=== PATIENT | female | born 1995 | race American Indian/Alaskan Native ===

== ENCOUNTER 2016-12-15 06:06 | Emergency (ER) | payer MEDICAID ==
[2016-12-15] MEDS ORDERED: ZOFRAN ODT ONE (06:26)
[2016-12-15] MEDS ORDERED: TYLENOL ONE (06:27)
[2016-12-15] MEDS ORDERED: ZOFRAN ODT PO ONE (06:38)
[2016-12-15] MEDS ORDERED: TYLENOL PO ONE (06:39)
--- NOTE | 2016-12-15 07:53 | Emergency Department Report ---
ED Back Pain/Injury HPI - General Chief Complaint: Back Pain/Injury Stated Complaint: LOWER BACK PAIN Time Seen by Provider: 12/15/16 07:52 Source: patient, family, EMS Limitations: No Limitations - History of Present Illness Initial Comments: Patient here by EMS complaining of low back pain 2 days. She denies any injury. Denies any fever or chills. Denies any urinary burning frequency or urgency. Denies any abdominal pain. Denies any nausea vomiting or diarrhea. She said her lower back pain on both sides is 10 out of 10 and it feels achy. Denies any loss of bowel or bladder function. Denies any urinary or bowel incontinence. She is currently on her menses. She says she did not take any medication for pain. MD Complaint: back pain Onset/Timin -: days(s) Similar Symptoms Previously: Yes Place: home Radiation: none Severity: severe Severity scale (0 -10): 10 Quality: aching Consistency: constant Improves With: none Worsens With: none Context: unknown Associated Symptoms: denies: confusion, weakness, chest pain, numbness, difficulty walking, cough, difficulty urinating, diaphoresis, incontinence, fever/chills, constipation, headaches, abdominal pain, loss of appetite, malaise , nausea/vomiting, rash, seizure, shortness of breath, syncope Treatments Prior to Arrival: other (none) - Related Data Previous Rx's Medication Instructions Recorded Last Taken Type HYDROcodone/APAP 5-325 [[place] 1 each PO Q6HR PRN #16 tablet 12/28/13 Unknown Rx 5-325 mg TAB] Nitrofurantoin [place]/M-Cryst 100 mg PO Q12HR #14 capsule 12/15/16 Unknown Rx [Macrobid CAP] traMADol [Ultram] 50 mg PO Q6HR PRN #12 tablet 12/15/16 Unknown Rx Allergies Allergy/AdvReac Type Severity Reaction Status Date / Time No Known Allergies Allergy Unverified 12/28/13 10:21 ED Review of Systems ROS: Stated complaint: LOWER BACK PAIN Other details as noted in HPI Comment: All other systems reviewed and negative Constitutional: denies: chills, fever ENT: denies: throat pain Respiratory: no symptoms reported Cardiovascular: denies: chest pain, palpitations, edema, syncope Gastrointestinal: denies: abdominal pain, nausea, vomiting, diarrhea, constipation, hematemesis, melena, hematochezia Genitourinary: denies: urgency, dysuria, frequency, hematuria, discharge, abnormal menses, dyspareunia Musculoskeletal: back pain. denies: joint swelling, arthralgia, myalgia Skin: denies: rash Neurological: denies: headache, weakness, numbness, paresthesias, confusion, abnormal gait, vertigo ED Past Medical Hx - Past Medical History Previous Medical History?: Yes - Surgical History Past Surgical History?: Yes Additional Surgical History: ectopic surgery, Ovarian cyst - Family History Family history: hypertension - Social History Smoking Status: Current Every Day Smoker Substance Use Type: Marijuana - Medications Home Medications: Home Medications Medication Instructions Recorded Confirmed Last Taken Type HYDROcodone/APAP 5-325 [[place] 1 each PO Q6HR PRN #16 tablet 12/28/13 Unknown Rx 5-325 mg TAB] Nitrofurantoin [place]/M-Cryst 100 mg PO Q12HR #14 capsule 12/15/16 Unknown Rx [Macrobid CAP] traMADol [Ultram] 50 mg PO Q6HR PRN #12 tablet 12/15/16 Unknown Rx ED Physical Exam - General Limitations: No Limitations General appearance: alert, in no apparent distress - Head Head exam: Present: atraumatic, normocephalic, normal inspection - Eye Eye exam: Present: normal appearance, PERRL, EOMI Pupils: Present: normal accommodation - ENT ENT exam: Present: normal exam, normal orophraynx, mucous membranes moist. Absent: TM's normal bilaterally, normal external ear exam - Neck Neck exam: Present: normal inspection, full ROM. Absent: tenderness, meningismus, lymphadenopathy - Respiratory Respiratory exam: Present: normal lung sounds bilaterally. Absent: respiratory distress, chest wall tenderness - Cardiovascular Cardiovascular Exam: Present: regular rate, normal rhythm, normal heart sounds - GI/Abdominal GI/Abdominal exam: Present: soft, normal bowel sounds. Absent: distended, tenderness, guarding, rebound, rigid, organomegaly, mass, bruit - Extremities Exam Extremities exam: Present: normal inspection, full ROM, normal capillary refill. Absent: tenderness, pedal edema, joint swelling, calf tenderness - Back Exam Back exam: Present: normal inspection, full ROM. Absent: tenderness, CVA tenderness (R), CVA tenderness (L), muscle spasm, paraspinal tenderness, vertebral tenderness, rash noted - Expanded Back Exam Expanded Back exam: Absent: saddle anesthesia Back exam: Negative Straight Leg Raising: Left, Right - Neurological Exam Neurological exam: Present: alert, oriented X3, normal gait - Psychiatric Psychiatric exam: Present: normal affect, normal mood - Skin Skin exam: Present: warm, dry, intact, normal color. Absent: rash ED Course Vital Signs 12/15/16 06:24 Temperature 98.7 F Pulse Rate 87 Respiratory 16 Rate Blood Pressure 140/90 Blood Pressure 140/90 [Left] O2 Sat by Pulse 100 Oximetry - Reevaluation(s) Reevaluation #1: 12/15/16 09:33 Patient is stable and no distress at present. ED Medical Decision Making - Lab Data Lab Results 12/15/16 Range/Units 07:35 Urine Color Yellow (Yellow) Urine Turbidity Slightly-cloudy (Clear) Urine pH 7.0 (5.0-7.0) Ur Specific [place] 1.016 (1.003-1.030) Urine Protein 30 mg/dl (Negative) mg/dL Urine Glucose (UA) Neg (Negative) mg/dL Urine Ketones Tr (Negative) mg/dL Urine Blood Lg (Negative) Urine Nitrite Neg (Negative) Urine Bilirubin Neg (Negative) Urine Urobilinogen < 2.0 (<2.0) mg/dL Ur Leukocyte Esterase Mod (Negative) Urine WBC (Auto) 51.0 H (0.0-6.0) /HPF Urine RBC (Auto) 12.0 (0.0-6.0) /HPF U Epithel Cells (Auto) 3.0 (0-13.0) /HPF Urine Bacteria (Auto) 2+ (Negative) /HPF Urine Mucus 1+ /HPF Urine HCG, Qual Negative (Negative) Urine culture pending - Medical Decision Making ED course: Patient here for back pain and urinalysis reveals that she has acute cystitis with large amount of blood. Currently on her menses. She remained stable throughout ED course and able to tolerate oral liquids. I discussed diagnosis and treatment plan the patient patient was understanding and need to follow-up with her primary care in 3-5 days and if she does not have one to follow-up with [facility]. Condition discharged home with prescription for Ultram. Critical care attestation.: If time is entered above; I have spent that time in minutes in the direct care of this critically ill patient, excluding procedure time. ED Disposition Clinical Impression: Acute cystitis with hematuria Back pain Qualifiers: Back pain location: low back pain Chronicity: acute Back pain laterality: bilateral Sciatica presence: without sciatica Qualified Code(s): M54.5 - Low back pain Disposition: DISCHARGED TO HOME OR SELFCARE Is pt being admited?: No Does the pt Need Aspirin: No Condition: Stable Instructions: Back Pain (ED), Urinary Tract Infection in Women (ED) Additional Instructions: Please drink plenty of fluids to include cranberry juice at least 2 L today. Take antibiotic as prescribed. Prescriptions: Nitrofurantoin [place]/M-Cryst [Macrobid CAP] 100 mg PO Q12HR #14 capsule traMADol [Ultram] 50 mg PO Q6HR PRN #12 tablet PRN Reason: Pain Referrals: PRIMARY CARE, [Primary Care Provider] - 3-5 Days [facility] [Outside] - 3-5 Days Forms: Work/School Release Form(ED)
[2016-12-15 09:38] LABS: Bacteria,Urine 2+ /HPF (Negative); Bilirubin,Urine NEG (Negative); Blood,Urine LG (Negative); Ketones,Urine TR mg/dL (Negative); Leukocyte Esterase,Urine MOD (Negative); Mucus,Urine 1+ /HPF; Nitrite,Urine NEG (Negative); Urobilinogen,Urine < 2.0 mg/dL (<2.0)
[2016-12-15] MEDS ORDERED: NORCO 5/325 PO ONE (11:27)
[2016-12-15 11:35] VITALS: BP 136/84
== END 2016-12-15 11:33 | disposition home or self-care (01) ==
LOC: ED 06:06
DX: N30.01 Acute cystitis with hematuria (principal); M54.5 Low back pain; F17.200 Nicotine dependence, unspecified, uncomplicated; F12.10 Cannabis abuse, uncomplicated
CPT/HCPCS: 81001; 81025; 87076; 87086; 87186; 99284; Q0162

== ENCOUNTER 2017-06-10 14:50 | Emergency (ER) | payer MEDICAID ==
[2017-06-10 15:39] LABS: Basophils % (Auto) 0.5 % (0.0-1.8); Eosinophils % (Auto) 0.8 % (0.0-4.3); Mean Corpuscular HGB Conc 33 % (30-34); Mean Corpuscular Hemoglobin 30 pg (28-32); Mean Corpuscular Volume 89 fl (79-97); Platelet Count 190 K/mm3 (140-440); Red Blood Count 4.38 M/mm3 (3.65-5.03); Red Cell Distribution Width 12.7 % (13.2-15.2); White Blood Count 4.6 K/mm3 (4.5-11.0)
[2017-06-10 15:58] LABS: Anion Gap 17 mmol/L; BUN/Creatinine Ratio 10; Blood Urea Nitrogen 6 mg/dL (7-17); Calcium 9.2 mg/dL (8.4-10.2); Carbon Dioxide 22 mmol/L (22-30); Chloride 101.5 mmol/L (98-107); Glucose 100 mg/dL (65-100); Potassium 3.5 mmol/L (3.6-5.0); Sodium 137 mmol/L (137-145)
--- NOTE | 2017-06-10 17:55 | Ultrasound Report ---
FINAL REPORT PROCEDURE: US TRANSVAGINAL and transabdominal TECHNIQUE: Real-time transabdominal sonography in multiple planes of the pelvis was performed. The pelvic structures were not optimally visualized. Transvaginal sonography was then performed to better evaluate the structures and/or abnormalities described below with image documentation. Grayscale, color flow Doppler imaging and velocity spectral waveform analysis of the ovaries was employed (duplex imaging). CPT 11215, 38993, and 04442 HISTORY: pelvic pain COMPARISON: No prior studies are available for comparison. FINDINGS: UTERUS Size: 7.2 x 3.5 x 4.9 cm. Endometrial thickness: 8 mm. Orientation: anteverted. Cervix: Normal. Fibroids/masses: None. RIGHT Ovary: 6.2 x 4.8 x 6.4 cm. Appearance: There is a hypoechoic rounded mass with internal septations measuring 6.0 x 5.1 x 4.7 centimeters. No internal blood flow seen. This may be a complex cyst. Doppler images: Normal spectral waveforms and color flow. The systolic and diastolic velocities are within normal limits. LEFT Ovary: 3.4 x 1.4 x 2.3 cm. Appearance: Normal. Doppler images: Normal spectral waveforms and color flow. The systolic and diastolic velocities are within normal limits. Pelvic fluid: Minimal free fluid is seen. Other: None. IMPRESSION: Complex right ovarian mass may be a complex cyst. Follow-up ultrasound in 6 weeks could be obtained as indicated. PROCEDURE: TECHNIQUE: HISTORY: COMPARISON: FINDINGS: IMPRESSION:
--- NOTE | 2017-06-10 17:55 | Ultrasound Report ---
FINAL REPORT PROCEDURE: US TRANSVAGINAL and transabdominal TECHNIQUE: Real-time transabdominal sonography in multiple planes of the pelvis was performed. The pelvic structures were not optimally visualized. Transvaginal sonography was then performed to better evaluate the structures and/or abnormalities described below with image documentation. Grayscale, color flow Doppler imaging and velocity spectral waveform analysis of the ovaries was employed (duplex imaging). CPT 09024, 90216, and 50767 HISTORY: pelvic pain COMPARISON: No prior studies are available for comparison. FINDINGS: UTERUS Size: 7.2 x 3.5 x 4.9 cm. Endometrial thickness: 8 mm. Orientation: anteverted. Cervix: Normal. Fibroids/masses: None. RIGHT Ovary: 6.2 x 4.8 x 6.4 cm. Appearance: There is a hypoechoic rounded mass with internal septations measuring 6.0 x 5.1 x 4.7 centimeters. No internal blood flow seen. This may be a complex cyst. Doppler images: Normal spectral waveforms and color flow. The systolic and diastolic velocities are within normal limits. LEFT Ovary: 3.4 x 1.4 x 2.3 cm. Appearance: Normal. Doppler images: Normal spectral waveforms and color flow. The systolic and diastolic velocities are within normal limits. Pelvic fluid: Minimal free fluid is seen. Other: None. IMPRESSION: Complex right ovarian mass may be a complex cyst. Follow-up ultrasound in 6 weeks could be obtained as indicated.
[2017-06-10 18:57] LABS: Bacteria,Urine 2+ /HPF (Negative); Bilirubin,Urine NEG (Negative); Blood,Urine NEG (Negative); Ketones,Urine NEG (Negative); Leukocyte Esterase,Urine SM (Negative); Mucus,Urine 3+ /HPF; Nitrite,Urine POS (Negative); Urobilinogen,Urine < 2.0 mg/dL (<2.0)
[2017-06-10] MEDS ORDERED: TORADOL IM ONE (21:50)
--- NOTE | 2017-06-10 21:55 | Emergency Department Report ---
ED Abdominal Pain HPI - General Chief Complaint: Abdominal Pain Stated Complaint: VAGINAL PAIN Time Seen by Provider: 06/10/17 21:39 Source: patient Mode of arrival: Ambulatory Limitations: No Limitations - History of Present Illness Initial Comments: 21 YO FEMALE WITH H/O RIGHT OVARIAN CYSTS HER WITH C/O SEVERE 10/10 PAIN A FEW SECONDS AFTER SEXUAL INTERCOURSE. THE PAIN WAS FELT IN HER VAGINA AND IN HER ABDOMEN. SHE HAS NEVER HAD THIS PAIN BEFORE. SHE HAD NO PAIN DURING SEXUAL INTERCOURSE BUT ONLY AFTER. HER PARTNER WAS NOT PARTICULARLY LARGE IN PENIS SIZE. MD Complaint: abdominal pain -: Sudden Location: suprapubic Radiation: other (VAGINA) Migration to: no migration Severity scale (0 -10): 10 Quality: sharp Consistency: now resolved (RESOLVED WITHIN MINUTES) Worsens With: nothing Context: recent antibiotic use (SEX) Treatments Prior to Arrival: other (NOTHING) - Related Data Previous Rx's Medication Instructions Recorded Last Taken Type Nitrofurantoin [place]/M-Cryst 100 mg PO Q12HR #14 capsule 12/15/16 Unknown Rx [Macrobid CAP] traMADol [Ultram] 50 mg PO Q6HR PRN #12 tablet 12/15/16 Unknown Rx HYDROcodone/APAP 5-325 [[place] 2 each PO Q6HR PRN #16 tablet 06/10/17 Unknown Rx 5-325 mg TAB] Nitrofurantoin Monohyd/M-Cryst 100 mg PO BID #14 capsule 06/10/17 Unknown Rx [Macrobid 100 mg Capsule] Allergies Allergy/AdvReac Type Severity Reaction Status Date / Time No Known Allergies Allergy Unverified 12/28/13 10:21 ED Review of Systems ROS: Stated complaint: VAGINAL PAIN Other details as noted in HPI Constitutional: denies: chills, fever Eyes: denies: eye pain, eye discharge, vision change ENT: denies: ear pain, throat pain Respiratory: denies: cough, shortness of breath, wheezing Cardiovascular: denies: chest pain, palpitations Endocrine: no symptoms reported Gastrointestinal: denies: abdominal pain, nausea, diarrhea Genitourinary: denies: urgency, dysuria, discharge Musculoskeletal: denies: back pain, joint swelling, arthralgia Skin: denies: rash, lesions Neurological: headache. denies: weakness, paresthesias Psychiatric: denies: anxiety, depression Hematological/Lymphatic: denies: easy bleeding, easy bruising ED Past Medical Hx - Past Medical History Previous Medical History?: Yes Additional medical history: RIGHT OVARIAN CYST - Surgical History Additional Surgical History: ectopic surgery, Ovarian cyst - Social History Smoking Status: Current Every Day Smoker Substance Use Type: Alcohol - Medications Home Medications: Home Medications Medication Instructions Recorded Confirmed Last Taken Type Nitrofurantoin [place]/M-Cryst 100 mg PO Q12HR #14 capsule 12/15/16 Unknown Rx [Macrobid CAP] traMADol [Ultram] 50 mg PO Q6HR PRN #12 tablet 12/15/16 Unknown Rx HYDROcodone/APAP 5-325 [[place] 2 each PO Q6HR PRN #16 tablet 06/10/17 Unknown Rx 5-325 mg TAB] Nitrofurantoin Monohyd/M-Cryst 100 mg PO BID #14 capsule 06/10/17 Unknown Rx [Macrobid 100 mg Capsule] ED Physical Exam - General Limitations: No Limitations General appearance: alert, in no apparent distress - Head Head exam: Present: atraumatic, normocephalic - Eye Eye exam: Present: normal appearance - ENT ENT exam: Present: mucous membranes moist - Neck Neck exam: Present: normal inspection - Respiratory Respiratory exam: Present: normal lung sounds bilaterally. Absent: respiratory distress, wheezes - Cardiovascular Cardiovascular Exam: Present: regular rate, normal rhythm. Absent: systolic murmur, diastolic murmur, rubs, gallop - GI/Abdominal GI/Abdominal exam: Present: soft, tenderness (OVER UTERUS), normal bowel sounds. Absent: distended, guarding, rebound - Extremities Exam Extremities exam: Present: normal inspection - Back Exam Back exam: Present: normal inspection - Neurological Exam Neurological exam: Present: alert, oriented X3 - Psychiatric Psychiatric exam: Present: normal affect, normal mood - Skin Skin exam: Present: warm, dry, intact, normal color. Absent: rash ED Course Vital Signs 06/10/17 06/10/17 15:00 20:51 Temperature 98.2 F 99.7 F H Pulse Rate 87 100 H Respiratory 18 18 Rate Blood Pressure 108/83 101/64 O2 Sat by Pulse 100 100 Oximetry ED Medical Decision Making - Lab Data Result diagrams: 06/10/17 15:26 06/10/17 15:26 - Radiology Data Radiology results: report reviewed (US PELVIS/TRANSVAGINAL; RIGHT OVARIAN MASS CT ABD/PELVIS: COMPLEX RIGHT OVARIAN CYST WITH SEPTATIONS) - Medical Decision Making 1. UTI----MACROBID 2. ABD PAIN---NARCO 3. WILL DO CT OF ABD/PELVIS TO SEE IF RIGHT OVARY HAS MASS OR CYST. 4. D/C TO FOLLOW UP WITH PRINCIPAL SYSTEM SOFTWARE ENGINEER ABOUT RIGHT OVARY MASS Critical care attestation.: If time is entered above; I have spent that time in minutes in the direct care of this critically ill patient, excluding procedure time. ED Disposition Clinical Impression: Ovarian cystic mass Qualifiers: Laterality: right Qualified Code(s): N83.201 - Unspecified ovarian cyst, right side Abdominal pain Qualifiers: Abdominal location: lower abdomen, unspecified Qualified Code(s): R10.30 - Lower abdominal pain, unspecified UTI (urinary tract infection) Qualifiers: Urinary tract infection type: acute cystitis Hematuria presence: without hematuria Qualified Code(s): N30.00 - Acute cystitis without hematuria Disposition: TO HOME OR SELFCARE Is pt being admited?: No Does the pt Need Aspirin: No Condition: Stable Instructions: Urinary Tract Infection in Women (ED), Ovarian Cyst (ED), Abdominal Pain (ED) Additional Instructions: PLEASE CALL DR PHILIP FOR FOLLOWUP AND REMOVAL OF THIS OVARIAN CYSTS. Prescriptions: HYDROcodone/APAP 5-325 [[place] 5-325 mg TAB] 2 each PO Q6HR PRN #16 tablet PRN Reason: Pain Nitrofurantoin Monohyd/M-Cryst [Macrobid 100 mg Capsule] 100 mg PO BID #14 capsule Referrals: PRIMARY MD SLICK [Primary Care Provider] - 3-5 Days [facility] [Outside] - 3-5 Days AMISHA PHILIP MD [Staff Physician] - 3-5 Days Time of Disposition: 23:40
[2017-06-10] MEDS ORDERED: MACROBID PO ONE (21:57)
[2017-06-10] MEDS ORDERED: NACL ONE (21:58)
[2017-06-10] MEDS ORDERED: ROCEPHIN IM ONE (22:00)
[2017-06-10] MEDS: XYLOCAINE 1% MPF 5 mL INFILTRATI ONE ×2 (22:55)
--- NOTE | 2017-06-10 23:25 | Cat Scan Report ---
FINAL REPORT PROCEDURE: CT ABDOMEN PELVIS W CON TECHNIQUE: Computerized axial tomography of the abdomen and pelvis was performed after the IV injection of iodinated nonionic contrast. HISTORY: ?RIGHT OVARIAN MASS VS CYST COMPARISON: Ultrasound FINDINGS: Visualized lower thorax: No significant abnormality. Liver: Normal size and attenuation. Spleen: Normal size and attenuation. Gallbladder and biliary system: Normal. Pancreas: Normal. Adrenals: Normal. Kidneys: Normal. GI tract: Normal. No dilated loops of large or small bowel. Appendix is not visualized Lymph nodes and mesentery: Normal. Vasculature: Normal. Bladder: Normal. Reproductive organs: Normal uterus. Complex 6.1 x 5.4 cm right adnexal cyst with septations and ill-defined internal densities. Peritoneum: Mild free fluid in the pelvis. Musculoskeletal structures: No significant abnormality. Other: None. IMPRESSION: Complex right adnexal cyst
[2017-06-10 23:55] VITALS: BP 112/74
== END 2017-06-10 23:54 | disposition home or self-care (01) ==
LOC: ED 14:50
DX: N83.201 Unspecified ovarian cyst, right side (principal); N30.00 Acute cystitis without hematuria; F17.200 Nicotine dependence, unspecified, uncomplicated
CPT/HCPCS: 36415; 74177; 76830; 80048; 81001; 84702; 85025; 87076; 87086; 87186; 93975; 96372; 99284; J0696; J1885; Q9967

== ENCOUNTER 2017-10-31 23:28 | Emergency (ER) | payer MEDICAID ==
[2017-11-01 02:16] VITALS: BP 115/72
[2017-11-01 02:40] LABS: Hematocrit 38.9 % (30.3-42.9); Hemoglobin 12.9 gm/dl (10.1-14.3); Mean Corpuscular HGB Conc 33 % (30-34); Mean Corpuscular Hemoglobin 29 pg (28-32); Mean Corpuscular Volume 88 fl (79-97); Platelet Count 228 K/mm3 (140-440); Red Cell Distribution Width 13.3 % (13.2-15.2)
[2017-11-01] MEDS ORDERED: NORCO 5/325 PO ONE (03:28)
[2017-11-01] MEDS ORDERED: ZOFRAN ODT PO ONE (03:28)
--- NOTE | 2017-11-01 03:35 | Emergency Department Report ---
HPI - General Chief Complaint: Vaginal Bleeding Time Seen by Provider: 11/01/17 03:16 - HPI HPI: Room 25 The patient is 21-year-old female present with the chief complaint lower abdominal pain and vaginal bleeding. The patient states for the past 2-3 days she's had intermittent lower abdominal pain described as pulling/cramping pain. The patient states she is also having vaginal bleeding for the past 2 days. The patient states she had a double shot in July and was scheduled to receive her neck shot 10/30/2017 but decided against it. Patient denies any history of fever. Patient states she's had one episode of vomiting. The patient currently gives her pain score of 6/10 Location: Pelvis Duration: [See above] Quality: Pulling/cramping Severity: 6/10 Modifying factors: [see above] Context: [see above] Mode of transportation: [not driving] ED Past Medical Hx - Past Medical History Previous Medical History?: Yes Additional medical history: RIGHT OVARIAN CYST - Surgical History Past Surgical History?: Yes Additional Surgical History: ectopic surgery Left side, 2010 - Family History Family history: no significant - Social History Smoking Status: Current Some Day Smoker Substance Use Type: Alcohol (occasional), Cocaine (last use 1 month ago), Marijuana - Medications Home Medications: Home Medications Medication Instructions Recorded Confirmed Last Taken Type Nitrofurantoin [place]/M-Cryst 100 mg PO Q12HR #14 capsule 12/15/16 Unknown Rx [Macrobid CAP] traMADol [Ultram] 50 mg PO Q6HR PRN #12 tablet 12/15/16 Unknown Rx HYDROcodone/APAP 5-325 [[place] 2 each PO Q6HR PRN #16 tablet 06/10/17 Unknown Rx 5-325 mg TAB] Nitrofurantoin Monohyd/M-Cryst 100 mg PO BID #14 capsule 06/10/17 Unknown Rx [Macrobid 100 mg Capsule] ED Review of Systems ROS: Stated complaint: ABD PAIN; ABN VAG BLEEDING Other details as noted in HPI Constitutional: denies: fever Gastrointestinal: abdominal pain, nausea, vomiting Genitourinary: abnormal menses Physical Exam - Physical Exam Vital Signs: Vital Signs 11/01/17 02:07 Temperature 98.4 F Pulse Rate 69 Respiratory 14 Rate Blood Pressure 115/72 O2 Sat by Pulse 100 Oximetry Physical Exam: GENERAL: The patient is well-developed well-nourished female lying on stretcher not appearing to be in acute distress. [] HEENT: Normocephalic. Atraumatic. Extraocular motions are intact. Patient has moist mucous membranes. NECK: Supple. Trachea midline CHEST/LUNGS: Clear to auscultation. There is no respiratory distress noted. HEART/CARDIOVASCULAR: Regular. There is no tachycardia. There is no gallop rub or murmur. ABDOMEN: Abdomen is soft, with mild discomfort to palpation in suprapubic region. Patient has normal bowel sounds. There is no abdominal distention. SKIN: There is no rash. There is no edema. There is no diaphoresis. NEURO: The patient is awake, alert, and oriented. The patient is cooperative. The patient has normal speech MUSCULOSKELETAL: There is no evidence of acute injury. ED Course Vital Signs 11/01/17 02:07 Temperature 98.4 F Pulse Rate 69 Respiratory 14 Rate Blood Pressure 115/72 O2 Sat by Pulse 100 Oximetry - Reevaluation(s) Reevaluation #1: 11/01/17 05:22 Patient could not be found. Patient not an ultrasound and not in room. Patient 's gown has been left in room. ED Medical Decision Making - Lab Data Result diagrams: 11/01/17 02:29 Laboratory Tests 11/01/17 11/01/17 11/01/17 02:29 02:29 02:29 WBC 5.4 RBC 4.40 Hgb 12.9 Hct 38.9 MCV 88 MCH 29 MCHC 33 RDW 13.3 Plt Count 228 Add Manual Diff Complete Total Counted 100 Seg Neutrophils % Hspt Tutor Seg Neuts % (Manual) 47.0 Band Neutrophils % 0 Lymphocytes % (Manual) 43.0 H Reactive Lymphs % (Man) 0 Monocytes % (Manual) 8.0 H Eosinophils % (Manual) 0 Basophils % (Manual) 0 Metamyelocytes % 2.0 Myelocytes % 0 Promyelocytes % 0 Blast Cells % 0 Nucleated RBC % Not Reportable Seg Neutrophils # Man 2.5 Band Neutrophils # 0.0 Lymphocytes # (Manual) 2.3 Abs React Lymphs (Man) 0.0 Monocytes # (Manual) 0.4 Eosinophils # (Manual) 0.0 Basophils # (Manual) 0.0 Metamyelocytes # 0.1 Myelocytes # 0.0 Promyelocytes # 0.0 Blast Cells # 0.0 WBC Morphology Not Reportable Hypersegmented Neuts Not Reportable Hyposegmented Neuts Not Reportable Hypogranular Neuts Not Reportable Smudge Cells Not Reportable Toxic Granulation Not Reportable Toxic Vacuolation Not Reportable Dohle Bodies Not Reportable Pelger-Huet Anomaly Not Reportable Rick Rods Not Reportable Platelet Estimate Appears normal Clumped Platelets Not Reportable Plt Clumps, EDTA Not Reportable Large Platelets Few Giant Platelets Not Reportable Platelet Satelliting Not Reportable Plt Morphology Comment Not Reportable RBC Morphology Normal Dimorphic RBCs Not Reportable Polychromasia Not Reportable Hypochromasia Not Reportable Poikilocytosis Not Reportable Anisocytosis Not Reportable Microcytosis Not Reportable Macrocytosis Not Reportable Spherocytes Not Reportable Pappenheimer Bodies Not Reportable Sickle Cells Not Reportable Target Cells Not Reportable Tear Drop Cells Not Reportable Ovalocytes Not Reportable Helmet Cells Not Reportable [place] Bodies Not Reportable Lee Rings Not Reportable [place]au Cells Not Reportable Bite Cells Not Reportable Crenated Cell Not Reportable Elliptocytes Not Reportable Acanthocytes (Spur) Not Reportable Rouleaux Not Reportable Hemoglobin C Crystals Not Reportable Schistocytes Not Reportable Malaria parasites Not Reportable Flako Bodies Not Reportable Hem Pathologist Commnt No HCG, Qual Negative Blood Type B POSITIVE Antibody Screen Negative - Differential Diagnosis menorrhagia, UTI, vaginitis Critical care attestation.: If time is entered above; I have spent that time in minutes in the direct care of this critically ill patient, excluding procedure time. ED Disposition Clinical Impression: Abnormal vaginal bleeding Disposition: ELOPED Is pt being admited?: No Does the pt Need Aspirin: No Condition: Undetermined Time of Disposition: 05:23 (patient eloped)
[2017-11-01 04:17] LABS: Basophils % (Manual) 0 % (0.0-1.8); Eosinophils % (Manual) 0 % (0.0-4.3); Large Platelets Few; RBC Morphology Normal; Total Cells Counted 100
[2017-11-01 05:23] LABS: Bilirubin,Urine NEG (Negative); Blood,Urine LG (Negative); Color,Urine Yellow (Yellow); Mucus,Urine 3+ /HPF
== END 2017-11-01 03:30 | disposition left against medical advice (07) ==
LOC: ED 23:28
DX: N93.9 Abnormal uterine and vaginal bleeding, unspecified (principal); F17.200 Nicotine dependence, unspecified, uncomplicated; F14.10 Cocaine abuse, uncomplicated; F12.10 Cannabis abuse, uncomplicated
CPT/HCPCS: 36415; 81001; 84703; 85007; 85025; 86850; 86900; 86901; 99283

== ENCOUNTER 2018-03-30 17:45 | Emergency (ER) | payer MEDICAID ==
--- NOTE | 2018-03-30 22:52 | Emergency Department Report ---
ED Female HPI - General Chief complaint: Earache Stated complaint: EAR/BACK/STOMACH PAIN Time Seen by Provider: 03/30/18 21:21 Source: patient Mode of arrival: Ambulatory Limitations: No Limitations - History of Present Illness Initial comments: Patient initially presented for earache sound consistent for a I am sending her complaint abdominal pain vaginal discharge past 3 days last contact 4 days patient states believes STD discharge white thick malodorous is no fever no chills no back pain, vomiting patient doesn't endorse abdominal cramping with current menses that started today MD Complaint: vaginal discharge, possible STD Onset/Timin -: days(s) Radiation: non-radiating Severity: moderate Severity scale (0 -10): 4 Quality: cramping Consistency: intermittent Improves with: none Worsens with: none Are you Now?: No Last Menstrual Period: 03/30/18 EDC: 01/04/19 Associated Symptoms: vaginal discharge, vaginal bleeding (current menses ), abdominal pain. denies: nausea/vomiting, fever/chills, headaches, loss of appetite, dysuria, hematuria, rash, seizure, shortness of breath, syncope, weakness - Related Data Sexually active: Yes : 2 Para: 2 A: 0 Previous Rx's Medication Instructions Recorded Last Taken Type Nitrofurantoin Cottle/M-Cryst 100 mg PO Q12HR #14 capsule 12/15/16 Unknown Rx [Macrobid CAP] traMADol [Ultram] 50 mg PO Q6HR PRN #12 tablet 12/15/16 Unknown Rx HYDROcodone/APAP 5-325 [[place] 2 each PO Q6HR PRN #16 tablet 06/10/17 Unknown Rx 5-325 mg TAB] Nitrofurantoin Monohyd/M-Cryst 100 mg PO BID #14 capsule 06/10/17 Unknown Rx [Macrobid 100 mg Capsule] Amoxicillin/Potassium Clav 1 each PO BID #20 tablet 03/30/18 Unknown Rx [Augmentin 875-125 Tablet] Ibuprofen 800 mg PO TID PRN #30 tablet 03/30/18 Unknown Rx metroNIDAZOLE [Flagyl] 500 mg PO BID #20 tab 03/30/18 Unknown Rx Allergies Allergy/AdvReac Type Severity Reaction Status Date / Time No Known Allergies Allergy Verified 03/30/18 17:49 ED Review of Systems ROS: Stated complaint: EAR/BACK/STOMACH PAIN Other details as noted in HPI Constitutional: denies: chills, fever Eyes: denies: eye pain, eye discharge, vision change ENT: ear pain. denies: throat pain Respiratory: denies: cough, shortness of breath, wheezing Cardiovascular: denies: chest pain, palpitations Endocrine: no symptoms reported Gastrointestinal: abdominal pain. denies: nausea, vomiting, diarrhea, constipation, hematemesis, melena, hematochezia Genitourinary: discharge. denies: urgency, dysuria, frequency, abnormal menses , dyspareunia Musculoskeletal: denies: back pain, joint swelling, arthralgia Skin: denies: rash, lesions Neurological: denies: headache, weakness, paresthesias Psychiatric: denies: anxiety, depression Hematological/Lymphatic: denies: easy bleeding, easy bruising ED Past Medical Hx - Past Medical History Previous Medical History?: Yes Additional medical history: RIGHT OVARIAN CYST - Surgical History Past Surgical History?: Yes Additional Surgical History: ectopic surgery Left side, 2010 - Social History Smoking Status: Current Every Day Smoker Substance Use Type: Alcohol - Medications Home Medications: Home Medications Medication Instructions Recorded Confirmed Last Taken Type Nitrofurantoin Cottle/M-Cryst 100 mg PO Q12HR #14 capsule 12/15/16 Unknown Rx [Macrobid CAP] traMADol [Ultram] 50 mg PO Q6HR PRN #12 tablet 12/15/16 Unknown Rx HYDROcodone/APAP 5-325 [[place] 2 each PO Q6HR PRN #16 tablet 06/10/17 Unknown Rx 5-325 mg TAB] Nitrofurantoin Monohyd/M-Cryst 100 mg PO BID #14 capsule 06/10/17 Unknown Rx [Macrobid 100 mg Capsule] Amoxicillin/Potassium Clav 1 each PO BID #20 tablet 03/30/18 Unknown Rx [Augmentin 875-125 Tablet] Ibuprofen 800 mg PO TID PRN #30 tablet 03/30/18 Unknown Rx metroNIDAZOLE [Flagyl] 500 mg PO BID #20 tab 03/30/18 Unknown Rx ED Physical Exam - General Limitations: No Limitations General appearance: alert, in no apparent distress - Head Head exam: Present: atraumatic, normocephalic - Eye Eye exam: Present: normal appearance - ENT ENT exam: Present: normal orophraynx, mucous membranes moist, normal external ear exam - Expanded ENT Exam Expanded TM/Canal exam: Erythema: Left TM, Canal Tenderness: Left TM Mouth exam: Present: normal external inspection Teeth exam: Present: normal inspection Throat exam: Positive: tonsillar erythema. Negative: tonsillomegaly, tonsillar exudate, R peritonsillar mass, L peritonsillar mass - Neck Neck exam: Present: normal inspection, full ROM. Absent: tenderness, meningismus, lymphadenopathy, thyromegaly - Respiratory Respiratory exam: Present: normal lung sounds bilaterally. Absent: respiratory distress, wheezes, stridor - Cardiovascular Cardiovascular Exam: Present: regular rate, normal rhythm, normal heart sounds. Absent: systolic murmur, diastolic murmur, rubs, gallop - GI/Abdominal GI/Abdominal exam: Present: soft, guarding, normal bowel sounds. Absent: tenderness, bruit, hernia - Rectal Rectal exam: Present: deferred - External exam: Present: other (deferred ) - Extremities Exam Extremities exam: Present: normal inspection - Back Exam Back exam: Present: normal inspection - Neurological Exam Neurological exam: Present: alert, oriented X3 - Psychiatric Psychiatric exam: Present: normal affect, normal mood - Skin Skin exam: Present: warm, dry, intact, normal color. Absent: rash ED Course Vital Signs 03/30/18 17:49 Temperature 99.8 F H Pulse Rate 76 Respiratory 18 Rate Blood Pressure 110/70 O2 Sat by Pulse 100 Oximetry ED Medical Decision Making - Lab Data Wet prep Clues, no trich no yeast - Medical Decision Making We'll treat for a little wet prep positive for BV and chlamydia cultures pending noted a OM left ear we'll treat for BV GC/Ch cultures are pending AOM patient will follow-up with health department for HIV and HSV screening and [facility] for AOM pt verbalized agreement and understanding of same. Critical care attestation.: If time is entered above; I have spent that time in minutes in the direct care of this critically ill patient, excluding procedure time. ED Disposition Clinical Impression: BV (bacterial vaginosis) AOM (acute otitis media) Qualifiers: Otitis media type: serous Laterality: left Recurrence: not specified as recurrent Qualified Code(s): H65.02 - Acute serous otitis media, left ear Disposition: TO HOME OR SELFCARE Is pt being admited?: No Does the pt Need Aspirin: No Condition: Good Instructions: Bacterial Vaginosis (ED), Otitis Media (ED) Prescriptions: Amoxicillin/Potassium Clav [Augmentin 875-125 Tablet] 1 each PO BID #20 tablet Ibuprofen 800 mg PO TID PRN #30 tablet PRN Reason: pain metroNIDAZOLE [Flagyl] 500 mg PO BID #20 tab Referrals: PRIMARY CARE,MD [Primary Care Provider] - 3-5 Days Forms: STI Treatment and Prevention Time of Disposition: 23:01
[2018-03-30 23:10] VITALS: BP 112/70
== END 2018-03-30 23:10 | disposition home or self-care (01) ==
LOC: ED 17:45
DX: N76.0 Acute vaginitis (principal); H65.02 Acute serous otitis media, left ear; F17.200 Nicotine dependence, unspecified, uncomplicated
CPT/HCPCS: 87210; 87591; 99282

== ENCOUNTER 2018-08-08 15:02 | Emergency (ER) | payer SELFPAY ==
[2018-08-08 15:12] VITALS: BP 110/76
[2018-08-08 15:54] LABS: Bilirubin,Urine NEG (Negative); Blood,Urine LG (Negative); Color,Urine Red (Yellow); Urobilinogen,Urine < 2.0 mg/dL (<2.0)
[2018-08-08 15:59] LABS: RBC,Urine > 182.0 /HPF (0.0-6.0)
[2018-08-08 16:00] LABS: HCG Qualitative,Urine Negative (Negative)
--- NOTE | 2018-08-08 22:59 | Ultrasound Report ---
FINAL REPORT PROCEDURE: US TRANSVAGINAL and transabdominal TECHNIQUE: Real-time transabdominal sonography in multiple planes of the pelvis was performed. The p elvic structures, especially the ovaries were not optimally visualized. Transvaginal sonography was t hen performed to better evaluate the structures and/or abnormalities described below with image docum entation. CPT 43240 and 44457 HISTORY: pelvic pain and adnexa pain COMPARISON: No prior studies are available for comparison. FINDINGS: UTERUS Size: 7.2 x 3.1 x 3.5 cm. Endometrial thickness: 4 mm. Orientation: anteverted. Cervix: Normal. Fibroids/masses: None. RIGHT Ovary: 2.7 x 1.9 x 3.0 cm. Appearance: 1.7 centimeter complex cyst is present. LEFT Ovary: 3.0 x 2.0 x 2.6 cm. Appearance: Numerous peripheral follicles are present. Pelvic fluid: None. Other: None. IMPRESSION: Bilateral small ovarian cysts/follicles
--- NOTE | 2018-08-08 23:01 | Ultrasound Report ---
FINAL REPORT PROCEDURE: US PELVIC COMPLETE TECHNIQUE: Real-time transabdominal sonography in multiple planes of the pelvis was performed. The p elvic structures, especially the ovaries were not optimally visualized. Transvaginal sonography was t hen performed to better evaluate the structures and/or abnormalities described below with image docum entation. CPT 29690 and 91086 HISTORY: pelvic pain and adnexa pain COMPARISON: No prior studies are available for comparison. FINDINGS: UTERUS Size: 7.2 x 3.1 x 3.5 cm. Endometrial thickness: 4 mm. Orientation: anteverted. Cervix: Normal. Fibroids/masses: None. RIGHT Ovary: 2.7 x 1.9 x 3.0 cm. Appearance: 1.7 centimeter complex cyst is present. LEFT Ovary: 3.0 x 2.0 x 2.6 cm. Appearance: Numerous peripheral follicles are present. Pelvic fluid: None. Other: None. IMPRESSION: Bilateral small ovarian cysts/follicles
--- NOTE | 2018-08-08 23:13 | Emergency Department Report ---
ED Female HPI - General Chief complaint: Abdominal Pain Stated complaint: CYST BUSTED/STOMACH PAIN/BLEEDING Time Seen by Provider: 08/08/18 19:03 Source: patient Mode of arrival: Ambulatory Limitations: No Limitations - History of Present Illness Initial comments: 22-year-old female to emergency Department complaining of a pain to the right lower abdomen region. The area of the adnexa. States that she doesn't know she has a history of ovarian cyst is not sure process is flared up. She is also been complaining of continued vaginal bleeding which she states has been going off and on for about 14-16 months. Associated with nausea and having about 4 pads per day over the last 2 days. Has some mild dysuria although she urinates, but no increased urgency or decreased production. Reports no fever, chills, sweats. No chest pain or palpitations. Pain is achy, sometimes burning, rates 5 out of 10. MD Complaint: dysuria Location: suprapubic Radiation: non-radiating Severity: mild Quality: dull Consistency: constant Improves with: none Are you Now?: No Associated Symptoms: vaginal bleeding, abdominal pain, dysuria. denies: nausea/vomiting, fever/chills, loss of appetite, rash, syncope, weakness - Related Data Sexually active: Yes Previous Rx's Medication Instructions Recorded Last Taken Type Nitrofurantoin Mot[place]/M-Cryst 100 mg PO Q12HR #14 capsule 12/15/16 Unknown Rx [Macrobid CAP] traMADol [Ultram] 50 mg PO Q6HR PRN #12 tablet 12/15/16 Unknown Rx HYDROcodone/APAP 5-325 [[place] 2 each PO Q6HR PRN #16 tablet 06/10/17 Unknown Rx 5-325 mg TAB] Nitrofurantoin Monohyd/M-Cryst 100 mg PO BID #14 capsule 06/10/17 Unknown Rx [Macrobid 100 mg Capsule] Amoxicillin/Potassium Clav 1 each PO BID #20 tablet 03/30/18 Unknown Rx [Augmentin 875-125 Tablet] Ibuprofen 800 mg PO TID PRN #30 tablet 03/30/18 Unknown Rx metroNIDAZOLE [Flagyl] 500 mg PO BID #20 tab 03/30/18 Unknown Rx metroNIDAZOLE [Flagyl] 500 mg PO Q12HR #14 tab 06/27/18 Unknown Rx Ketorolac [Toradol] 10 mg PO Q6H PRN #15 tablet 08/08/18 Unknown Rx Nitrofurantoin Monohyd/M-Cryst 100 mg PO BID PRN #10 capsule 08/08/18 Unknown Rx [Macrobid 100 mg Capsule] Allergies Allergy/AdvReac Type Severity Reaction Status Date / Time No Known Allergies Allergy Verified 03/30/18 17:49 ED Review of Systems ROS: Stated complaint: CYST BUSTED/STOMACH PAIN/BLEEDING Other details as noted in HPI Constitutional: denies: chills, fever Eyes: denies: eye pain, eye discharge, vision change ENT: denies: ear pain, throat pain Respiratory: denies: cough, shortness of breath, wheezing Cardiovascular: denies: chest pain, palpitations Endocrine: no symptoms reported Gastrointestinal: denies: abdominal pain, nausea, diarrhea Genitourinary: dysuria. denies: urgency, discharge Musculoskeletal: denies: back pain, joint swelling, arthralgia Skin: denies: rash, lesions Neurological: denies: headache, weakness, paresthesias Psychiatric: denies: anxiety, depression Hematological/Lymphatic: denies: easy bleeding, easy bruising ED Past Medical Hx - Past Medical History Previous Medical History?: Yes Additional medical history: RIGHT OVARIAN CYST, ectopic - Surgical History Past Surgical History?: Yes Additional Surgical History: ectopic surgery Left side, 2010 - Social History Smoking Status: Current Every Day Smoker Substance Use Type: Alcohol - Medications Home Medications: Home Medications Medication Instructions Recorded Confirmed Last Taken Type Nitrofurantoin Motley/M-Cryst 100 mg PO Q12HR #14 capsule 12/15/16 Unknown Rx [Macrobid CAP] traMADol [Ultram] 50 mg PO Q6HR PRN #12 tablet 12/15/16 Unknown Rx HYDROcodone/APAP 5-325 [[place] 2 each PO Q6HR PRN #16 tablet 06/10/17 Unknown Rx 5-325 mg TAB] Nitrofurantoin Monohyd/M-Cryst 100 mg PO BID #14 capsule 06/10/17 Unknown Rx [Macrobid 100 mg Capsule] Amoxicillin/Potassium Clav 1 each PO BID #20 tablet 03/30/18 Unknown Rx [Augmentin 875-125 Tablet] Ibuprofen 800 mg PO TID PRN #30 tablet 03/30/18 Unknown Rx metroNIDAZOLE [Flagyl] 500 mg PO BID #20 tab 09/01/18 Unknown Rx metroNIDAZOLE [Flagyl] 500 mg PO Q12HR #14 tab 06/27/18 Unknown Rx Ketorolac [Toradol] 10 mg PO Q6H PRN #15 tablet 08/08/18 Unknown Rx Nitrofurantoin Monohyd/M-Cryst 100 mg PO BID PRN #10 capsule 08/08/18 Unknown Rx [Macrobid 100 mg Capsule] ED Physical Exam - General Limitations: No Limitations General appearance: alert, in no apparent distress - Head Head exam: Present: atraumatic, normocephalic - Eye Eye exam: Present: normal appearance, PERRL, EOMI - ENT ENT exam: Present: mucous membranes moist - Neck Neck exam: Present: normal inspection - Respiratory Respiratory exam: Present: normal lung sounds bilaterally. Absent: respiratory distress, rales, rhonchi, chest wall tenderness, prolonged expiratory - Cardiovascular Cardiovascular Exam: Present: regular rate, normal rhythm. Absent: systolic murmur, diastolic murmur, rubs, gallop - GI/Abdominal GI/Abdominal exam: Present: soft, tenderness, normal bowel sounds. Absent: guarding, rebound, hyperactive bowel sounds, hypoactive bowel sounds, organomegaly, mass, pulsatile mass - External exam: Present: normal external exam Speculum exam: Present: vaginal bleeding Bi-manual exam: Absent: cervical motion tendernes - Extremities Exam Extremities exam: Present: normal inspection, full ROM, normal capillary refill. Absent: pedal edema - Back Exam Back exam: Present: normal inspection, full ROM. Absent: CVA tenderness (R), CVA tenderness (L) - Neurological Exam Neurological exam: Present: alert, oriented X3, CN II-XII intact - Psychiatric Psychiatric exam: Present: normal affect, normal mood - Skin Skin exam: Present: warm, dry, intact, normal color. Absent: rash ED Course Vital Signs 08/08/18 15:10 Temperature 98.4 F Pulse Rate 72 Respiratory 18 Rate Blood Pressure 110/76 O2 Sat by Pulse 100 Oximetry ED Medical Decision Making - Radiology Data Radiology results: report reviewed [facility], [place] [address] [place] [address] Ultrasound Report Signed Patient: MADALYN ANDRADE MR#: [id number] : 1995 Acct:[id number] Age/Sex: 22 / F ADM Date: 08/08/18 Loc: ED Attending Dr: Ordering Physician: RAYMOND CHOWDARY Date of Service: 08/08/18 Procedure(s): US transvaginal Accession Number(s): [id number] cc: RAYMOND CHOWDARY FINAL REPORT PROCEDURE: US TRANSVAGINAL and transabdominal TECHNIQUE: Real-time transabdominal sonography in multiple planes of the pelvis was performed. The pelvic structures, especially the ovaries were not optimally visualized. Transvaginal sonography was then performed to better evaluate the structures and/or abnormalities described below with image documentation. CPT 50261 and 52367 HISTORY: pelvic pain and adnexa pain COMPARISON: No prior studies are available for comparison. FINDINGS: UTERUS Size: 7.2 x 3.1 x 3.5 cm. Endometrial thickness: 4 mm. Orientation: anteverted. Cervix: Normal. Fibroids/masses: None. RIGHT Ovary: 2.7 x 1.9 x 3.0 cm. Appearance: 1.7 centimeter complex cyst is present. LEFT Ovary: 3.0 x 2.0 x 2.6 cm. Appearance: Numerous peripheral follicles are present. Pelvic fluid: None. Other: None. IMPRESSION: Bilateral small ovarian cysts/follicles Transcribed By: [facility] Dictated By: KAIT CANNON M.D. Electronically Authenticated By: KAIT CANNON M.D. Signed Date/Time: 08/08/182258 DD/ 00 TD/TT: 08/08/182300 Critical care attestation.: If time is entered above; I have spent that time in minutes in the direct care of this critically ill patient, excluding procedure time. ED Disposition Clinical Impression: Ovarian cyst, Dysfunctional uterine bleeding Disposition: DC-01 TO HOME OR SELFCARE Is pt being admited?: No Does the pt Need Aspirin: No Condition: Stable Instructions: Abdominal Pain (ED), Dysfunctional Uterine Bleeding (ED), Menorrhagia (ED), Dysuria (ED) Referrals: PRIMARY CARE, [Primary Care Provider] - 3-5 Days [facility] [Provider Group] - 3-5 Days
== END 2018-08-08 23:25 | disposition home or self-care (01) ==
LOC: ED 15:02
DX: N83.202 Unspecified ovarian cyst, left side (principal); N83.201 Unspecified ovarian cyst, right side; N93.8 Other specified abnormal uterine and vaginal bleeding; F17.200 Nicotine dependence, unspecified, uncomplicated
CPT/HCPCS: 76830; 76856; 81001; 81025; 87210; 87591

== ENCOUNTER 2018-10-24 15:34 | Emergency (ER) | payer MEDICAID, OTHER ==
--- NOTE | 2018-10-24 16:06 | Emergency Department Report ---
Blank Doc - Documentation Documentation: This is a 22-year-old female that presents with pelvic pain. Denies any other complaints or symptoms. This initial assessment/diagnostic orders/clinical plan/treatment(s) is/are subject to change based on patient's health status, clinical progression and re- assessment by fellow clinical providers in the ED. Further treatment and workup at subsequent clinical providers discretion. Patient/guardians urged not to elope from the ED as their condition may be serious if not clinically assessed and managed. Initial orders include: 1- Patient sent to [facility] for further evaluation and treatment 2- ua 3- labs
[2018-10-24 16:09] VITALS: BP 104/62
[2018-10-24 17:05] LABS: Bilirubin,Urine NEG (Negative); Blood,Urine NEG (Negative); Color,Urine Yellow (Yellow); Mucus,Urine 2+ /HPF; Protein,Urine <15 mg/dL mg/dL (Negative); Urobilinogen,Urine < 2.0 mg/dL (<2.0)
[2018-10-24 17:08] LABS: HCG Qualitative,Urine Negative (Negative)
[2018-10-24 17:19] LABS: Basophils % (Auto) 0.5 % (0.0-1.8); Eosinophils # (Auto) 0.1 K/mm3 (0.0-0.4); Eosinophils % (Auto) 1.7 % (0.0-4.3); Hemoglobin 12.9 gm/dl (10.1-14.3); Lymphocytes # (Auto) 1.9 K/mm3 (1.2-5.4); Mean Corpuscular HGB Conc 33 % (30-34); Mean Corpuscular Volume 90 fl (79-97); Monocytes # (Auto) 0.4 K/mm3 (0.0-0.8); Monocytes % (Auto) 9.8 % (0.0-7.3); Platelet Count 216 K/mm3 (140-440); Red Blood Count 4.31 M/mm3 (3.65-5.03); Red Cell Distribution Width 13.5 % (13.2-15.2)
[2018-10-24 17:39] LABS: BUN/Creatinine Ratio 17; Blood Urea Nitrogen 12 mg/dL (7-17); Calcium 9.2 mg/dL (8.4-10.2); Hemolysis Index 5
--- NOTE | 2018-10-24 17:40 | Emergency Department Report ---
ED Female HPI - General Chief complaint: Urogenital-Female Stated complaint: VAGINAL SHARP PAIN/DISCHARGE Time Seen by Provider: 10/24/18 16:05 Source: patient Mode of arrival: Ambulatory Limitations: No Limitations - History of Present Illness Initial comments: Pt is a 22 yo female who presents to the ED with c/o vaginal and pelvic pain that began three days ago. She describes the pain as a sharp, stabbing. The patient has associated white vaginal discharge and vaginal itching. She denies any N/V, fever, or urinary sx. She is sexually active and did not use protection. She has a hx of G/C in 2007 and received tx at that time. - Related Data Previous Rx's Medication Instructions Recorded Last Taken Type Amoxicillin/Potassium Clav 1 each PO BID #20 tablet 03/30/18 Unknown Rx [Augmentin 875-125 Tablet] Ibuprofen 800 mg PO TID PRN #30 tablet 03/30/18 Unknown Rx Nitrofurantoin [place]/M-Cryst 100 mg PO Q12HR #14 capsule 10/24/18 Unknown Rx [Macrobid CAP] Phenazopyridine [Pyridium] 100 mg PO TID #14 tab 10/24/18 Unknown Rx Allergies Allergy/AdvReac Type Severity Reaction Status Date / Time No Known Allergies Allergy Verified 03/30/18 17:49 ED Review of Systems ROS: Stated complaint: VAGINAL SHARP PAIN/DISCHARGE Other details as noted in HPI Comment: All other systems reviewed and negative ED Past Medical Hx - Past Medical History Additional medical history: RIGHT OVARIAN CYST, ectopic - Surgical History Additional Surgical History: ectopic surgery Left side, 2010 - Social History Smoking Status: Current Every Day Smoker Substance Use Type: Alcohol, Marijuana - Medications Home Medications: Home Medications Medication Instructions Recorded Confirmed Last Taken Type Amoxicillin/Potassium Clav 1 each PO BID #20 tablet 03/30/18 Unknown Rx [Augmentin 875-125 Tablet] Ibuprofen 800 mg PO TID PRN #30 tablet 03/30/18 Unknown Rx Nitrofurantoin [place]/M-Cryst 100 mg PO Q12HR #14 capsule 10/24/18 Unknown Rx [Macrobid CAP] Phenazopyridine [Pyridium] 100 mg PO TID #14 tab 10/24/18 Unknown Rx ED Physical Exam - General Limitations: No Limitations General appearance: alert, in no apparent distress - Head Head exam: Present: atraumatic, normocephalic - ENT ENT exam: Present: mucous membranes moist - Respiratory Respiratory exam: Present: normal lung sounds bilaterally. Absent: respiratory distress, wheezes, rales, rhonchi, stridor, chest wall tenderness, accessory muscle use, decreased breath sounds, prolonged expiratory - Cardiovascular Cardiovascular Exam: Present: regular rate, normal rhythm, normal heart sounds. Absent: systolic murmur, rubs, gallop - GI/Abdominal GI/Abdominal exam: Present: soft, normal bowel sounds. Absent: distended, tenderness, guarding, rebound, rigid - External exam: Present: normal external exam, other (female RN present during examination ). Absent: erythema, swelling, lesions, lacerations, ecchymosis, bleeding Speculum exam: Present: vaginal discharge (copious amounts of yellow/white discharge), cervical discharge (copious amounts of yellow/white discharge). Absent: vaginal bleeding, foreign body, tissue, laceration Bi-manual exam: Present: normal bi-manual exam. Absent: cervical motion tendernes, adnexal tenderness, adnexal mass, uterine enlargement, uterine tenderness - Back Exam Back exam: Absent: CVA tenderness (R), CVA tenderness (L) - Neurological Exam Neurological exam: Present: alert, oriented X3 - Psychiatric Psychiatric exam: Present: normal affect, normal mood - Skin Skin exam: Present: warm, dry, intact ED Course Vital Signs 10/24/18 10/24/18 16:06 22:15 Temperature 98.2 F Pulse Rate 82 106 H Respiratory 18 17 Rate Blood Pressure 104/62 O2 Sat by Pulse 100 100 Oximetry ED Medical Decision Making - Lab Data Result diagrams: 10/24/18 16:33 10/24/18 16:33 Lab Results 10/24/18 10/24/18 10/24/18 Range/Units 16:33 16:33 16:40 WBC 3.9 L (4.5-11.0) K/mm3 RBC 4.31 (3.65-5.03) M/mm3 Hgb 12.9 (10.1-14.3) gm/dl Hct 39.0 (30.3-42.9) % MCV 90 (79-97) fl MCH 30 (28-32) pg MCHC 33 (30-34) % RDW 13.5 (13.2-15.2) % Plt Count 216 (140-440) K/mm3 Lymph % (Auto) 48.0 H (13.4-35.0) % Ciales % (Auto) 9.8 H (0.0-7.3) % Eos % (Auto) 1.7 (0.0-4.3) % Baso % (Auto) 0.5 (0.0-1.8) % Lymph # 1.9 (1.2-5.4) K/mm3 Ciales # 0.4 (0.0-0.8) K/mm3 Eos # 0.1 (0.0-0.4) K/mm3 Baso # 0.0 (0.0-0.1) K/mm3 Seg Neutrophils % 40.0 (40.0-70.0) % Seg Neutrophils # 1.6 L (1.8-7.7) K/mm3 Sodium 140 (137-145) mmol/L Potassium 3.6 (3.6-5.0) mmol/L Chloride 103.0 (98-107) mmol/L Carbon Dioxide 24 (22-30) mmol/L Anion Gap 17 mmol/L BUN 12 (7-17) mg/dL Creatinine 0.7 (0.7-1.2) mg/dL Estimated GFR > 60 ml/min BUN/Creatinine Ratio 17 % Glucose 182 H (65-100) mg/dL Calcium 9.2 (8.4-10.2) mg/dL Urine Color Yellow (Yellow) Urine Turbidity Clear (Clear) Urine pH 6.0 (5.0-7.0) Ur Specific [place] 1.020 (1.003-1.030) Urine Protein <15 mg/dl (Negative) mg/dL Urine Glucose (UA) Neg (Negative) mg/dL Urine Ketones Neg (Negative) mg/dL Urine Blood Neg (Negative) Urine Nitrite Neg (Negative) Urine Bilirubin Neg (Negative) Urine Urobilinogen < 2.0 (<2.0) mg/dL Ur Leukocyte Esterase Neg (Negative) Urine WBC (Auto) 1.0 (0.0-6.0) /HPF Urine RBC (Auto) 2.0 (0.0-6.0) /HPF U Epithel Cells (Auto) 5.0 (0-13.0) /HPF Urine Mucus 2+ /HPF Urine HCG, Qual Negative (Negative) - Radiology Data Radiology results: report reviewed HISTORY: pelvic and vaginal pain COMPARISONS: None . FINDINGS: UTERUS Size: 6.7 x 3.2 x 3.9 cm. Endometrial thickness: 4.2 mm. Orientation: anteverted. Cervix: Normal. Fibroids/masses: A 0.9 cm focal lesion is noted involving the uterine body on the right.. RIGHT Ovary: 2.7 x 2.5 x 2.0 cm. Appearance: Normal. LEFT Ovary: 3.0 x 2.6 x 2.2 cm. Appearance: Normal. Pelvic fluid: None. Other: None. IMPRESSION: A small focal lesion in the uterus most likely represents a fibroid. Otherwise negative study.. This document is electronically signed by Kin García MD., October 24 2018 11:39:51 PM ET - Medical Decision Making Pt is a 22 yo female who presents to the ED with c/o vaginal and pelvic pain that began three days ago. She describes the pain as a sharp, stabbing. The patient has associated white vaginal discharge and vaginal itching. She denies any N/V, fever, or urinary sx. She is sexually active and did not use protection. She has a hx of G/C in 2007 and received tx at that time. VSS. no abd tenderness. copious amounts of white/yellow discharge, no blisters lesions, no CMT. wet prep is negative. pt swabbed and treated for g/c. pt given antibiotics for a UTI, advised to take all as prescribed. US pelvic shows a small fibroid otherwise normal. Advised pt to follow up with PCP and [facility] in the next 2-3 days. Advised pt to check with medical records in 1 week for results of g/c. discussed to have any partner tested and treated. no sexual intercourse for 10 days. return to the emergency room for any new or worsening symptoms. Discussed with patient if concerned for any other STDs then to be seen by the health department, [facility], or PCP. - Differential Diagnosis STD, yeast, BV, trichomonas Critical care attestation.: If time is entered above; I have spent that time in minutes in the direct care of this critically ill patient, excluding procedure time. ED Disposition Clinical Impression: Fibroid, Screen for STD (sexually transmitted disease) UTI (urinary tract infection) Qualifiers: Urinary tract infection type: acute cystitis Hematuria presence: without hematuria Qualified Code(s): N30.00 - Acute cystitis without hematuria Disposition: TO HOME OR SELFCARE Is pt being admited?: No Does the pt Need Aspirin: No Condition: Stable Instructions: Uterine Fibroids (ED), Sexually Transmitted Diseases (ED), Safe Sex (ED), Urinary Tract Infection in Women (ED) Additional Instructions: Follow up with your primary care doctor and [facility] in the next 2-3 days. Take all medication as prescribed. Return to the emergency room for any new or worsening symptoms. If concerned about any other STDs be seen by primary care, health department, or [facility]. Call medical records in 1 week for results of your test. no sexual intercourse for 10 days. Have any partner tested and treated. Prescriptions: Nitrofurantoin Ciales/M-Cryst [Macrobid CAP] 100 mg PO Q12HR #14 capsule Phenazopyridine [Pyridium] 100 mg PO TID #14 tab Referrals: [facility] MD JONO [Primary Care Provider] - 2-3 Days [facility] [Provider Group] - 2-3 Days Time of Disposition: 22:04 Print Language: URDU
[2018-10-24] MEDS ORDERED: XYLOCAINE 1% MPF 5 mL INFILTRATI ONE (18:35)
[2018-10-24] MEDS ORDERED: ROCEPHIN IM ONE (18:35)
[2018-10-24] MEDS ORDERED: ZITHROMAX PO ONE (18:36)
--- NOTE | 2018-10-24 23:40 | Ultrasound Report ---
PROCEDURE: US PELVIC COMPLETE TECHNIQUE: Real-time transabdominal sonography in multiple planes of pelvis was performed with image documentation. HISTORY: pelvic and vaginal pain COMPARISONS: None . FINDINGS: UTERUS Size: 6.7 x 3.2 x 3.9 cm. Endometrial thickness: 4.2 mm. Orientation: anteverted. Cervix: Normal. Fibroids/masses: A 0.9 cm focal lesion is noted involving the uterine body on the right.. RIGHT Ovary: 2.7 x 2.5 x 2.0 cm. Appearance: Normal. LEFT Ovary: 3.0 x 2.6 x 2.2 cm. Appearance: Normal. Pelvic fluid: None. Other: None. IMPRESSION: A small focal lesion in the uterus most likely represents a fibroid. Otherwise negative study.. This document is electronically signed by Kin García MD., October 24 2018 11:38:05 PM ET
--- NOTE | 2018-10-24 23:42 | Ultrasound Report ---
PROCEDURE: US TRANSVAGINAL TECHNIQUE: Real-time transvaginal sonography in multiple planes of the pelvis was performed with tammy ge documentation. HISTORY: pelvic and vaginal pain COMPARISONS: None . FINDINGS: UTERUS Size: 6.7 x 3.2 x 3.9 cm. Endometrial thickness: 4.2 mm. Orientation: anteverted. Cervix: Normal. Fibroids/masses: A 0.9 cm focal lesion is noted involving the uterine body on the right.. RIGHT Ovary: 2.7 x 2.5 x 2.0 cm. Appearance: Normal. LEFT Ovary: 3.0 x 2.6 x 2.2 cm. Appearance: Normal. Pelvic fluid: None. Other: None. IMPRESSION: A small focal lesion in the uterus most likely represents a fibroid. Otherwise negative study.. This document is electronically signed by Kin García MD., October 24 2018 11:39:51 PM ET
== END 2018-10-24 22:15 | disposition home or self-care (01) ==
LOC: ED 15:34
DX: N39.0 Urinary tract infection, site not specified (principal); D21.9 Benign neoplasm of connective and other soft tissue, unspecified; F17.200 Nicotine dependence, unspecified, uncomplicated; F12.10 Cannabis abuse, uncomplicated
CPT/HCPCS: 36415; 76830; 76856; 80048; 81001; 81025; 85025; 87210; 87591; 96372; 99284; J0696

== ENCOUNTER 2020-09-04 13:58 | Emergency (ER) | payer SELFPAY ==
[2020-09-04 14:40] VITALS: BP 108/69
--- NOTE | 2020-09-04 15:01 | Emergency Department Report ---
ED Female HPI - General Chief complaint: Abdominal Pain Stated complaint: ABD PAINS Time Seen by Provider: 09/04/20 14:53 Source: patient Mode of arrival: Ambulatory Limitations: No Limitations - History of Present Illness Initial comments: 24-year-old -[place] female presents to the emergency room complaining of pelvic pain, dysuria, urinary frequency and urgency and vaginal discharge x3 days. Patient also complains of dizziness and headache. Patient admits to unprotected intercourse. Patient's last menstrual period was 08/14/2020 she is 2 para 0. Patient denies any nausea and vomiting. MD Complaint: vaginal discharge, dysuria, pelvic pain Onset/Timin -: days(s) Location: suprapubic Severity: moderate Severity scale (0 -10): 7 Quality: burning Consistency: intermittent Improves with: none Worsens with: urination Are you Now?: No Last Menstrual Period: 08/14/20 EDC: 05/21/21 Associated Symptoms: vaginal discharge, headaches, dysuria. denies: vaginal bleeding, nausea/vomiting, fever/chills - Related Data Sexually active: Yes : 2 Para: 0 Previous Rx's Medication Instructions Recorded Last Taken Type Amoxicillin/Potassium Clav 1 each PO BID #20 tablet 03/30/18 Unknown Rx [Augmentin 875-125 Tablet] Ibuprofen [Ibuprofen 800] 800 mg PO TID PRN #30 tablet 03/30/18 Unknown Rx Nitrofurantoin [place]/M-Cryst 100 mg PO Q12HR 10 Days #20 capsule 09/04/20 Unknown Rx [Macrobid CAP] Phenazopyridine [Pyridium] 100 mg PO TID #8 tab 09/04/20 Unknown Rx Allergies Allergy/AdvReac Type Severity Reaction Status Date / Time No Known Allergies Allergy Verified 09/04/20 14:39 ED Review of Systems ROS: Stated complaint: ABD PAINS Other details as noted in HPI ED Past Medical Hx - Past Medical History Previous Medical History?: Yes Additional medical history: RIGHT OVARIAN CYST, ectopic - Surgical History Past Surgical History?: Yes Additional Surgical History: ectopic surgery Left side, 2010 - Social History Smoking Status: Never Smoker Substance Use Type: None - Medications Home Medications: Home Medications Medication Instructions Recorded Confirmed Last Taken Type Amoxicillin/Potassium Clav 1 each PO BID #20 tablet 03/30/18 Unknown Rx [Augmentin 875-125 Tablet] Ibuprofen [Ibuprofen 800] 800 mg PO TID PRN #30 tablet 03/30/18 Unknown Rx Nitrofurantoin [place]/M-Cryst 100 mg PO Q12HR 10 Days #20 capsule 09/04/20 Unknown Rx [Macrobid CAP] Phenazopyridine [Pyridium] 100 mg PO TID #8 tab 09/04/20 Unknown Rx ED Physical Exam - General Limitations: No Limitations General appearance: alert, in no apparent distress - Head Head exam: Present: atraumatic, normocephalic - Eye Eye exam: Present: normal appearance - ENT ENT exam: Present: mucous membranes moist - Neck Neck exam: Present: normal inspection - Respiratory Respiratory exam: Absent: accessory muscle use - Cardiovascular Cardiovascular Exam: Present: regular rate - GI/Abdominal GI/Abdominal exam: Present: soft, tenderness (Suprapubic). Absent: distended - Back Exam Back exam: Present: normal inspection - Neurological Exam Neurological exam: Present: alert, oriented X3, normal gait - Psychiatric Psychiatric exam: Present: normal affect, normal mood - Skin Skin exam: Present: warm, dry, intact, normal color. Absent: rash ED Course Vital Signs 09/04/20 14:39 Temperature 99.0 F Pulse Rate 83 Respiratory 16 Rate Blood Pressure 108/69 O2 Sat by Pulse 99 Oximetry ED Medical Decision Making - Medical Decision Making 24-year-old -[place] female presents to the emergency room complaining of pelvic pain, dysuria, urinary frequency and urgency and vaginal discharge x3 days. Patient also complains of dizziness and headache. Patient admits to unprotected intercourse. Patient's last menstrual period was 08/14/2020 she is 2 para 0. Patient denies any nausea and vomiting. Critical care attestation.: If time is entered above; I have spent that time in minutes in the direct care of this critically ill patient, excluding procedure time. ED Disposition Clinical Impression: UTI (urinary tract infection) Qualifiers: Urinary tract infection type: site unspecified Hematuria presence: without hematuria Qualified Code(s): N39.0 - Urinary tract infection, site not specified Disposition: TO HOME OR SELFCARE Is pt being admited?: No Does the pt Need Aspirin: No Condition: Stable Instructions: Abdominal Pain (ED), Urinary Tract Infection, Adult, [id number] Additional Instructions: Urinalysis shows that you have a urinary tract infection. Negative test. Please complete your antibiotics as prescribed. Pain medication as needed. Very important for you to increase your water intake by 3 to 4 L daily. Be sure to void after intercourse. Prescriptions: Nitrofurantoin [place]/M-Cryst [Macrobid CAP] 100 mg PO Q12HR 10 Days #20 capsule Phenazopyridine [Pyridium] 100 mg PO TID #8 tab Referrals: [facility] [Provider Group] - 3-5 Days Forms: Work/School Release Form(ED)
[2020-09-04 15:48] LABS: Bacteria,Urine 1+ /HPF (Negative); Bilirubin,Urine NEG (Negative); Blood,Urine NEG (Negative); Color,Urine Yellow (Yellow); HCG Qualitative,Urine Negative (Negative); Mucus,Urine FEW /HPF; Protein,Urine <15 mg/dL mg/dL (Negative); Urobilinogen,Urine < 2.0 mg/dL (<2.0)
== END 2020-09-04 17:36 | disposition home or self-care (01) ==
LOC: ED 13:58
DX: N39.0 Urinary tract infection, site not specified (principal); Z79.899 Other long term (current) drug therapy; Z98.890 Other specified postprocedural states
CPT/HCPCS: 81001; 81025; 87086; 99283

== ENCOUNTER 2021-02-11 20:28 | Emergency (ER) | payer SELFPAY ==
[2021-02-11 22:11] LABS: Basophils % (Auto) 0.7 % (0.0-1.8); Eosinophils # (Auto) 0.3 K/mm3 (0.0-0.4); Eosinophils % (Auto) 4.3 % (0.0-4.3); Hematocrit 41.5 % (30.3-42.9); Hemoglobin 13.7 gm/dl (10.1-14.3); Lymphocytes # (Auto) 2.1 K/mm3 (1.2-5.4); Lymphocytes % (Auto) 31.6 % (13.4-35.0); Mean Corpuscular HGB Conc 33 % (30-34); Mean Corpuscular Volume 90 fl (79-97); Monocytes # (Auto) 0.6 K/mm3 (0.0-0.8); Monocytes % (Auto) 8.9 % (0.0-7.3); Platelet Count 274 K/mm3 (140-440); Red Blood Count 4.63 M/mm3 (3.65-5.03); Red Cell Distribution Width 13.1 % (13.2-15.2)
[2021-02-11 22:18] LABS: Bilirubin,Urine NEG (Negative); Blood,Urine NEG (Negative); Color,Urine Yellow (Yellow); Mucus,Urine 3+ /HPF
[2021-02-11 22:28] LABS: Alanine Aminotransferase 12 units/L (7-56); Albumin 4.7 g/dL (3.9-5); BUN/Creatinine Ratio 18; Blood Urea Nitrogen 14 mg/dL (7-17); Calcium 9.6 mg/dL (8.4-10.2); Hemolysis Index 10
--- NOTE | 2021-02-12 05:59 | Emergency Department Report ---
ED General Adult HPI - General Chief complaint: Abdominal Pain Stated complaint: SHARP STABBING PAIN LWR STOMACH Time Seen by Provider: 02/12/21 04:26 Source: patient Mode of arrival: Ambulatory Limitations: No Limitations - History of Present Illness Initial comments: 25-year-old -M[place] female patient without past medical history presents with complaints of lower abdominal pain x3 days she rates her pain as a in severity and describes it as cramping aching. She admits to abnormal vaginal discharge and vaginal irritation but denies any vaginal bleeding/dyspareunia patient states her symptoms are similar when she was previously diagnosed with an STI. -: Sudden - Related Data Previous Rx's Medication Instructions Recorded Last Taken Type Amoxicillin/Potassium Clav 1 each PO BID #20 tablet 03/30/18 Unknown Rx [Augmentin 875-125 Tablet] Ibuprofen [Ibuprofen 800] 800 mg PO TID PRN #30 tablet 03/30/18 Unknown Rx Nitrofurantoin [place]/M-Cryst 100 mg PO Q12HR 10 Days #20 capsule 09/04/20 Unknown Rx [Macrobid CAP] Phenazopyridine [Pyridium] 100 mg PO TID #8 tab 09/04/20 Unknown Rx Doxycycline Monohydrate 100 mg PO BID 7 Days #14 capsule 02/12/21 Unknown Rx Fluconazole [Diflucan TAB] 200 mg PO QDAY 1 Days #1 tablet 02/12/21 Unknown Rx metroNIDAZOLE [Flagyl] 500 mg PO Q12HR 7 Days #14 tab 02/12/21 Unknown Rx Allergies Allergy/AdvReac Type Severity Reaction Status Date / Time No Known Allergies Allergy Verified 09/04/20 14:39 ED Review of Systems ROS: Stated complaint: SHARP STABBING PAIN LWR STOMACH Other details as noted in HPI Constitutional: denies: chills, fever, malaise Gastrointestinal: abdominal pain. denies: nausea, vomiting, diarrhea, constipation, hematemesis, melena, hematochezia Genitourinary: discharge. denies: urgency, dysuria, frequency, hematuria, abnormal menses, dyspareunia Musculoskeletal: denies: back pain Hematological/Lymphatic: denies: swollen glands ED Past Medical Hx - Past Medical History Additional medical history: RIGHT OVARIAN CYST, ectopic - Surgical History Additional Surgical History: ectopic surgery Left side, 2010 - Social History Smoking Status: Never Smoker Substance Use Type: None - Medications Home Medications: Home Medications Medication Instructions Recorded Confirmed Last Taken Type Amoxicillin/Potassium Clav 1 each PO BID #20 tablet 03/30/18 Unknown Rx [Augmentin 875-125 Tablet] Ibuprofen [Ibuprofen 800] 800 mg PO TID PRN #30 tablet 03/30/18 Unknown Rx Nitrofurantoin [place]/M-Cryst 100 mg PO Q12HR 10 Days #20 capsule 09/04/20 Unknown Rx [Macrobid CAP] Phenazopyridine [Pyridium] 100 mg PO TID #8 tab 09/04/20 Unknown Rx Doxycycline Monohydrate 100 mg PO BID 7 Days #14 capsule 02/12/21 Unknown Rx Fluconazole [Diflucan TAB] 200 mg PO QDAY 1 Days #1 tablet 02/12/21 Unknown Rx metroNIDAZOLE [Flagyl] 500 mg PO Q12HR 7 Days #14 tab 02/12/21 Unknown Rx ED Physical Exam - General Limitations: No Limitations General appearance: alert, in no apparent distress - Head Head exam: Present: atraumatic, normocephalic - Eye Eye exam: Present: normal appearance - ENT ENT exam: Present: normal exam - Neck Neck exam: Present: normal inspection - Respiratory Respiratory exam: Absent: respiratory distress - Cardiovascular Cardiovascular Exam: Present: regular rate - GI/Abdominal GI/Abdominal exam: Present: soft, tenderness (Suprapubic), normal bowel sounds. Absent: distended, guarding, rebound, rigid - Speculum exam: Present: erythema (Mild), vaginal discharge ([place] white) Bi-manual exam: Present: normal bi-manual exam. Absent: cervical motion tendernes - Extremities Exam Extremities exam: Present: normal inspection - Back Exam Back exam: Present: normal inspection - Neurological Exam Neurological exam: Present: alert, oriented X3, normal gait - Psychiatric Psychiatric exam: Present: normal affect, normal mood - Skin Skin exam: Present: warm, dry, intact, normal color. Absent: rash ED Course Vital Signs 02/12/21 06:18 Temperature 98.6 F Pulse Rate 71 Respiratory 18 Rate Blood Pressure 119/75 O2 Sat by Pulse 100 Oximetry ED Medical Decision Making - Lab Data Result diagrams: 02/11/21 21:45 02/11/21 21:45 Lab Results 02/11/21 02/11/21 02/11/21 Range/Units 21:45 21:45 21:45 WBC 6.8 (4.5-11.0) K/mm3 RBC 4.63 (3.65-5.03) M/mm3 Hgb 13.7 (10.1-14.3) gm/dl Hct 41.5 (30.3-42.9) % MCV 90 (79-97) fl MCH 30 (28-32) pg MCHC 33 (30-34) % RDW 13.1 L (13.2-15.2) % Plt Count 274 (140-440) K/mm3 Lymph % (Auto) 31.6 (13.4-35.0) % [place] % (Auto) 8.9 H (0.0-7.3) % Eos % (Auto) 4.3 (0.0-4.3) % Baso % (Auto) 0.7 (0.0-1.8) % Lymph # (Auto) 2.1 (1.2-5.4) K/mm3 [place] # (Auto) 0.6 (0.0-0.8) K/mm3 Eos # (Auto) 0.3 (0.0-0.4) K/mm3 Baso # (Auto) 0.0 (0.0-0.1) K/mm3 Seg Neutrophils % 54.5 (40.0-70.0) % Seg Neutrophils # 3.7 (1.8-7.7) K/mm3 Sodium 138 (137-145) mmol/L Potassium 3.8 (3.6-5.0) mmol/L Chloride 102.0 (98-107) mmol/L Carbon Dioxide 26 (22-30) mmol/L Anion Gap 14 mmol/L BUN 14 (7-17) mg/dL Creatinine 0.8 (0.6-1.2) mg/dL Estimated GFR > 60 ml/min BUN/Creatinine Ratio 18 % Glucose 109 H (65-100) mg/dL Calcium 9.6 (8.4-10.2) mg/dL Total Bilirubin 0.30 (0.1-1.2) mg/dL AST 17 (5-40) units/L ALT 12 (7-56) units/L Alkaline Phosphatase 61 (35-129) units/L Total Protein 7.6 (6.3-8.2) g/dL Albumin 4.7 (3.9-5) g/dL Albumin/Globulin Ratio 1.6 % Lipase (13-60) units/L HCG, Qual Negative (Negative) Urine Color (Yellow) Urine Turbidity (Clear) Urine pH (5.0-7.0) Ur Specific [place] (1.003-1.030) Urine Protein (Negative) mg/dL Urine Glucose (UA) (Negative) mg/dL Urine Ketones (Negative) mg/dL Urine Blood (Negative) Urine Nitrite (Negative) Urine Bilirubin (Negative) Urine Urobilinogen (<2.0) mg/dL Ur Leukocyte Esterase (Negative) Urine WBC (Auto) (0.0-6.0) /HPF Urine RBC (Auto) (0.0-6.0) /HPF U Epithel Cells (Auto) (0-13.0) /HPF Urine Mucus /HPF 02/11/21 02/11/21 Range/Units 21:45 Unknown WBC (4.5-11.0) K/mm3 RBC (3.65-5.03) M/mm3 Hgb (10.1-14.3) gm/dl Hct (30.3-42.9) % MCV (79-97) fl MCH (28-32) pg MCHC (30-34) % RDW (13.2-15.2) % Plt Count (140-440) K/mm3 Lymph % (Auto) (13.4-35.0) % [place] % (Auto) (0.0-7.3) % Eos % (Auto) (0.0-4.3) % Baso % (Auto) (0.0-1.8) % Lymph # (Auto) (1.2-5.4) K/mm3 [place] # (Auto) (0.0-0.8) K/mm3 Eos # (Auto) (0.0-0.4) K/mm3 Baso # (Auto) (0.0-0.1) K/mm3 Seg Neutrophils % (40.0-70.0) % Seg Neutrophils # (1.8-7.7) K/mm3 Sodium (137-145) mmol/L Potassium (3.6-5.0) mmol/L Chloride (98-107) mmol/L Carbon Dioxide (22-30) mmol/L Anion Gap mmol/L BUN (7-17) mg/dL Creatinine (0.6-1.2) mg/dL Estimated GFR ml/min BUN/Creatinine Ratio % Glucose (65-100) mg/dL Calcium (8.4-10.2) mg/dL Total Bilirubin (0.1-1.2) mg/dL AST (5-40) units/L ALT (7-56) units/L Alkaline Phosphatase (35-129) units/L Total Protein (6.3-8.2) g/dL Albumin (3.9-5) g/dL Albumin/Globulin Ratio % Lipase 27 (13-60) units/L HCG, Qual (Negative) Urine Color Yellow (Yellow) Urine Turbidity Cloudy (Clear) Urine pH 6.0 (5.0-7.0) Ur Specific [place] 1.029 (1.003-1.030) Urine Protein 30 mg/dl (Negative) mg/dL Urine Glucose (UA) Neg (Negative) mg/dL Urine Ketones Neg (Negative) mg/dL Urine Blood Neg (Negative) Urine Nitrite Neg (Negative) Urine Bilirubin Neg (Negative) Urine Urobilinogen 2.0 (<2.0) mg/dL Ur Leukocyte Esterase Tr (Negative) Urine WBC (Auto) 1.0 (0.0-6.0) /HPF Urine RBC (Auto) 2.0 (0.0-6.0) /HPF U Epithel Cells (Auto) 17.0 H (0-13.0) /HPF Urine Mucus 3+ /HPF - Medical Decision Making 25-year-old -[place] female patient without past medical history presents with complaints of lower abdominal pain x3 days she rates her pain as a in severity and describes it as cramping aching. She admits to abnormal vaginal discharge and vaginal irritation but denies any vaginal bleeding/dyspareunia patient states her symptoms are similar when she was previously diagnosed with an STI. No significant abnormalities noted on CBC, CMP, lipase, or UA. No CMT noted on exam, however a chunky white discharge was noted. Wet prep shows BV. Given patient's pain and pelvic exam, will treat empirically for gonorrhea. Patient is well-appearing, she is stable for discharge home. Patient to follow-up with her primary care doctor in 3 to 5 days. Discussed from sexual intercourse for 2 to 3 weeks and importance of patient's partner getting tested and treated. Strict return precautions were discussed in detail patient verbalizes understanding. Critical care attestation.: If time is entered above; I have spent that time in minutes in the direct care of this critically ill patient, excluding procedure time. ED Disposition Clinical Impression: Yeast vaginitis, Vaginal discharge, Bacterial vaginosis Disposition: TO HOME OR SELFCARE Is pt being admited?: No Condition: Stable Instructions: Bacterial Vaginosis, Vaginal Yeast Infection, Adult, Cervicitis, Preventing Sexually Transmitted Infections, Adult, Bacterial Vaginosis (ED), Abdominal Pain (ED) Prescriptions: Fluconazole [Diflucan TAB] 200 mg PO QDAY 1 Days #1 tablet Doxycycline Monohydrate 100 mg PO BID 7 Days #14 capsule metroNIDAZOLE [Flagyl] 500 mg PO Q12HR 7 Days #14 tab Referrals: PRIMARY CARE, [Primary Care Provider] - 3-5 Days Forms: STI Treatment and Prevention
[2021-02-12] MEDS ORDERED: LIDOCAINE-MPF (1%) 10 MG/1 ML VIAL 5 ML INFILTRATI ONE (06:09)
[2021-02-12 06:20] VITALS: BP 119/75
== END 2021-02-12 06:39 | disposition home or self-care (01) ==
LOC: ED 20:28
DX: B37.3 Candidiasis of vulva and vagina (principal); N76.0 Acute vaginitis; B96.89 Other specified bacterial agents as the cause of diseases classified elsewhere; Z79.899 Other long term (current) drug therapy; Z98.890 Other specified postprocedural states
CPT/HCPCS: 36415; 80053; 81001; 83690; 84703; 85025; 87210; 87591; 96372; 99284; J0696

== ENCOUNTER 2021-06-24 21:39 | Emergency (ER) | payer SELFPAY ==
[2021-06-24 21:46] VITALS: BP 114/71
[2021-06-24] MEDS ORDERED: HYOSCYAMINE SUBL 0.125 MG TAB SL ONE (21:57)
[2021-06-24] MEDS ORDERED: ALUM-MAG HYDROXIDE-SIMETHICONE 200-200-20MG/5ML ORAL LIQD 30 ML PO ONE (21:57)
[2021-06-24] MEDS ORDERED: FAMOTIDINE 20 MG TAB PO ONE (21:57)
--- NOTE | 2021-06-24 21:59 | Emergency Department Report ---
ED General Adult HPI - General Chief complaint: Abdominal Pain Stated complaint: ABDOMINAL PAIN Time Seen by Provider: 06/24/21 21:50 Source: patient Mode of arrival: Ambulatory Limitations: No Limitations - History of Present Illness Initial comments: Patient is a 25-year-old female presents emergency room with complaints of upper abdominal pain that began this morning. She states that yesterday she did eat a lot of different foods for Thanksgiving. She denies any fever, nausea, vomiting, diarrhea, urinary symptoms, hematochezia, melena, hematemesis. Past medical history of ovarian cyst and ectopic . No allergies to medications. Patient is a heavy drinker, she states that she drinks liquor and wine every other day. - Related Data Previous Rx's Medication Instructions Recorded Last Taken Type Amoxicillin/Potassium Clav 1 each PO BID #20 tablet 03/30/18 Unknown Rx [Augmentin 875-125 Tablet] Ibuprofen [Ibuprofen 800] 800 mg PO TID PRN #30 tablet 03/30/18 Unknown Rx Nitrofurantoin [place]/M-Cryst 100 mg PO Q12HR 10 Days #20 capsule 09/04/20 Unknown Rx [Macrobid CAP] Phenazopyridine [Pyridium] 100 mg PO TID #8 tab 09/04/20 Unknown Rx Doxycycline Monohydrate 100 mg PO BID 7 Days #14 capsule 02/12/21 Unknown Rx Fluconazole [Diflucan TAB] 200 mg PO QDAY 1 Days #1 tablet 02/12/21 Unknown Rx metroNIDAZOLE [Flagyl] 500 mg PO Q12HR 7 Days #14 tab 02/12/21 Unknown Rx Famotidine [Pepcid] 40 mg PO QHS #30 tablet 06/24/21 Unknown Rx Sucralfate [Carafate] 1 gm PO ACHS 7 Days #21 tablet 06/24/21 Unknown Rx Allergies Allergy/AdvReac Type Severity Reaction Status Date / Time No Known Allergies Allergy Verified 09/04/20 14:39 ED Review of Systems ROS: Stated complaint: ABDOMINAL PAIN Other details as noted in HPI Comment: All other systems reviewed and negative ED Past Medical Hx - Past Medical History Previous Medical History?: No Additional medical history: RIGHT OVARIAN CYST, ectopic - Surgical History Past Surgical History?: Yes Additional Surgical History: ectopic surgery Left side, 2010 - Social History Smoking Status: Current Every Day Smoker Substance Use Type: None - Medications Home Medications: Home Medications Medication Instructions Recorded Confirmed Last Taken Type Amoxicillin/Potassium Clav 1 each PO BID #20 tablet 03/30/18 Unknown Rx [Augmentin 875-125 Tablet] Ibuprofen [Ibuprofen 800] 800 mg PO TID PRN #30 tablet 03/30/18 Unknown Rx Nitrofurantoin [place]/M-Cryst 100 mg PO Q12HR 10 Days #20 capsule 09/04/20 Unknown Rx [Macrobid CAP] Phenazopyridine [Pyridium] 100 mg PO TID #8 tab 09/04/20 Unknown Rx Doxycycline Monohydrate 100 mg PO BID 7 Days #14 capsule 02/12/21 Unknown Rx Fluconazole [Diflucan TAB] 200 mg PO QDAY 1 Days #1 tablet 02/12/21 Unknown Rx metroNIDAZOLE [Flagyl] 500 mg PO Q12HR 7 Days #14 tab 02/12/21 Unknown Rx Famotidine [Pepcid] 40 mg PO QHS #30 tablet 06/24/21 Unknown Rx Sucralfate [Carafate] 1 gm PO ACHS 7 Days #21 tablet 06/24/21 Unknown Rx ED Physical Exam - General Limitations: No Limitations General appearance: alert, in no apparent distress - Head Head exam: Present: atraumatic, normocephalic - Eye Eye exam: Present: normal appearance - ENT ENT exam: Present: mucous membranes moist - Respiratory Respiratory exam: Present: normal lung sounds bilaterally. Absent: respiratory distress, wheezes, rales, rhonchi, stridor, chest wall tenderness, accessory muscle use, decreased breath sounds, prolonged expiratory - Cardiovascular Cardiovascular Exam: Present: regular rate, normal rhythm, normal heart sounds. Absent: systolic murmur, diastolic murmur, rubs, gallop - GI/Abdominal GI/Abdominal exam: Present: soft, normal bowel sounds, other (no peritoneal signs, negative murphys sign). Absent: distended, tenderness, guarding, rebound, rigid - Neurological Exam Neurological exam: Present: alert, oriented X3 - Psychiatric Psychiatric exam: Present: normal affect, normal mood - Skin Skin exam: Present: warm, dry, intact ED Course Vital Signs 06/24/21 06/24/21 21:44 23:11 Temperature 98.6 F Pulse Rate 92 H 72 Respiratory 18 12 Rate Blood Pressure 114/71 O2 Sat by Pulse 100 Oximetry ED Medical Decision Making - Lab Data Result diagrams: 06/24/21 21:59 06/24/21 21:59 Lab Results 06/24/21 06/24/21 06/24/21 Range/Units 21:59 21:59 21:59 WBC 6.6 (4.5-11.0) K/mm3 RBC 4.27 (3.65-5.03) M/mm3 Hgb 12.1 (10.1-14.3) gm/dl Hct 38.4 (30.3-42.9) % MCV 90 (79-97) fl MCH 28 (28-32) pg MCHC 32 (30-34) % RDW 13.4 (13.2-15.2) % Plt Count 245 (140-440) K/mm3 Lymph % (Auto) 33.9 (13.4-35.0) % [place] % (Auto) 8.4 H (0.0-7.3) % Eos % (Auto) 4.9 H (0.0-4.3) % Baso % (Auto) 0.7 (0.0-1.8) % Lymph # (Auto) 2.2 (1.2-5.4) K/mm3 [place] # (Auto) 0.6 (0.0-0.8) K/mm3 Eos # (Auto) 0.3 (0.0-0.4) K/mm3 Baso # (Auto) 0.0 (0.0-0.1) K/mm3 Seg Neutrophils % 52.1 (40.0-70.0) % Seg Neutrophils # 3.4 (1.8-7.7) K/mm3 Sodium 142 (137-145) mmol/L Potassium 3.3 L (3.6-5.0) mmol/L Chloride 106.9 (98-107) mmol/L Carbon Dioxide 23 (22-30) mmol/L Anion Gap 15 mmol/L BUN 15 (7-17) mg/dL Creatinine 0.7 (0.6-1.2) mg/dL Estimated GFR > 60 ml/min BUN/Creatinine Ratio 21 % Glucose 128 H (65-100) mg/dL Calcium 9.3 (8.4-10.2) mg/dL Total Bilirubin 0.20 (0.1-1.2) mg/dL AST 12 (5-40) units/L ALT 10 (7-56) units/L Alkaline Phosphatase 51 (35-129) units/L Total Protein 6.9 (6.3-8.2) g/dL Albumin 4.4 (3.9-5) g/dL Albumin/Globulin Ratio 1.8 % Lipase 29 (13-60) units/L HCG, Qual Negative (Negative) - Medical Decision Making Patient is a 25-year-old female presents emergency room with complaints of upper abdominal pain that began this morning. She states that yesterday she did eat a lot of different foods for Thanksgiving. She denies any fever, nausea, vomiting, diarrhea, urinary symptoms, hematochezia, melena, hematemesis. Past medical history of ovarian cyst and ectopic . No allergies to medications. Patient is a heavy drinker, she states that she drinks liquor and wine every other day. Vitals are normal. No abdominal tenderness on exam, no guarding, no rebound, no rigidity, no peritoneal signs, negative Lorenzo sign. Labs with hypokalemia, given K-Dur. Symptoms and examination could be related to GERD versus gas pain versus PUD. Patient has no tenderness on exam, no leukocytosis, no vomiting, tolerating p.o. intake, do not expect acute emergent intra-abdominal pathology at this time. Patient be referred to primary care doctor and GI doctor. Discussed the importance of follow-up and discussed strict return precautions. Advised patient Please take medication as prescribed. Follow-up with your primary care doctor. Follow-up with a GI doctor. Please decrease your alcohol use. Return to emergency room for any new or worse symptoms. Critical care attestation.: If time is entered above; I have spent that time in minutes in the direct care of this critically ill patient, excluding procedure time. ED Disposition Clinical Impression: Alcohol use, Hypokalemia Abdominal pain Qualifiers: Abdominal location: upper abdomen, unspecified Qualified Code(s): R10.10 - Upper abdominal pain, unspecified Disposition: 01 HOME / SELF CARE / HOMELESS Is pt being admited?: No Does the pt Need Aspirin: No Condition: Stable Instructions: Food Choices for Gastroesophageal Reflux Disease, Adult, Abdominal Pain, Adult, [id number], Abdominal Pain (ED) Additional Instructions: Please take medication as prescribed. Follow-up with your primary care doctor. Follow-up with a GI doctor. Please decrease your alcohol use. Return to emergency room for any new or worse symptoms. Prescriptions: Famotidine [Pepcid] 40 mg PO QHS #30 tablet Sucralfate [Carafate] 1 gm PO ACHS 7 Days #21 tablet Referrals: [facility] [Provider Group] - 3-5 Days LIZETH DASH MD [Staff Physician] - 3-5 Days [facility] [Provider Group] - 3-5 Days Time of Disposition: 22:38 Print Language: CYPRIOT
[2021-06-24 22:13] LABS: Basophils % (Auto) 0.7 % (0.0-1.8); Eosinophils # (Auto) 0.3 K/mm3 (0.0-0.4); Eosinophils % (Auto) 4.9 % (0.0-4.3); Hematocrit 38.4 % (30.3-42.9); Hemoglobin 12.1 gm/dl (10.1-14.3); Lymphocytes # (Auto) 2.2 K/mm3 (1.2-5.4); Lymphocytes % (Auto) 33.9 % (13.4-35.0); Mean Corpuscular HGB Conc 32 % (30-34); Mean Corpuscular Volume 90 fl (79-97); Monocytes # (Auto) 0.6 K/mm3 (0.0-0.8); Monocytes % (Auto) 8.4 % (0.0-7.3); Platelet Count 245 K/mm3 (140-440); Red Blood Count 4.27 M/mm3 (3.65-5.03); Red Cell Distribution Width 13.4 % (13.2-15.2)
[2021-06-24 22:34] LABS: Alanine Aminotransferase 10 units/L (7-56); Albumin 4.4 g/dL (3.9-5); Blood Urea Nitrogen 15 mg/dL (7-17); Calcium 9.3 mg/dL (8.4-10.2); Hemolysis Index 4
[2021-06-24 22:36] LABS: BUN/Creatinine Ratio 21
[2021-06-24] MEDS ORDERED: POTASSIUM CHLORIDE ER 20 MEQ TAB PO ONE (22:37)
== END 2021-06-24 23:13 | disposition home or self-care (01) ==
LOC: ED 21:39
DX: F10.99 Alcohol use, unspecified with unspecified alcohol-induced disorder (principal); E87.6 Hypokalemia; R10.10 Upper abdominal pain, unspecified; F17.200 Nicotine dependence, unspecified, uncomplicated
CPT/HCPCS: 36415; 80053; 83690; 84703; 85025; 99283